=== PATIENT | female | born 1990 | race Two or more races ===

== ENCOUNTER 2023-07-15 19:36 | Emergency (ER) | payer OTHER ==
[~2023-07-15] VITALS: Ht 167.6 cm; Wt 68.0 kg
[2023-07-15 20:50] LABS: HEMATOCRIT 33.3 % (36.0-45.00); HEMOGLOBIN 11.6 g/dL (12.0-15.00); MEAN CELL VOLUME 87.2 fL (80.00-100.00); MEAN CORPUSCULAR HEMOGLOBIN 30.3 pg (27.00-32.0); MEAN CORPUSCULAR HGB CONC 34.7 g/dl (32.0-36.0); PLATELET COUNT 191 K/uL (150-450); RED BLOOD COUNT 3.82 M/uL (4.00-6.00); RED CELL DISTRIBUTION WIDTH 14.5 % (11.5-14.5)
== END 2023-07-16 07:26 ==
LOC: ER 19:36
PROVIDERS: Emergency Medicine
DX: O44.11 Complete placenta previa with hemorrhage, first trimester (principal); Z3A.12 12 weeks gestation of pregnancy